=== PATIENT | female | born 1955 | race Asian ===

== ENCOUNTER → 2016-08-12 | Outpatient (CLI) | payer BC ==
[~2016-08-12] MED LIST: ALBU1AER9; CALCTAB5 PO; CHOL400T; MULT-884
== END | disposition home or self-care (01) ==
LOC: C.PAPS 16:10
PROVIDERS: ATTEND Obstetrics & Gynecology
DX: Z01.419 Encounter for gynecological examination (general) (routine) without abnormal findings (principal)

== ENCOUNTER → 2016-10-02 | Outpatient (CLI) | payer BC ==
--- NOTE | 2016-10-05 14:33 | MAMMOGRAPHY REPORT ---
BILATERAL DIGITAL SCREENING MAMMOGRAM TOMOSYNTHESIS WITH CAD: 10/02/2016 TECHNIQUE: Breast tomosynthesis in addition to standard 2D mammography was performed. Current study was also evaluated with a Computer Aided Detection (CAD) system. COMPARISON: Comparison is made to exams dated: 09/27/2015 mammogram, 09/06/2014 mammogram, 09/05/2013 ma mmogram, 08/08/2012 mammogram, 08/06/2011 mammogram, and 08/01/2010 mammogram - [facility]ter. BREAST COMPOSITION: There are scattered areas of fibroglandular density in both breasts. FINDINGS: No suspicious masses, calcifications, or areas of architectural distortion are noted in ei ther breast. There has been no significant interval change compared to prior exams. IMPRESSION: ACR BI-RADS CATEGORY 1: NEGATIVE There is no mammographic evidence of malignancy. A 1 year screening mammogram is recommended. The pa tient will receive written notification of the results. Approximately 10% of breast cancers are not detected with mammography. A negative mammographic report should not delay biopsy if a clinically suggestive mass is present. Cathy Randall M.D. /:10/02/2016 15:34:35 Senior Payroll Manager: Jaylin DOOLEY)([place]), [facility] letter sent: Normal 1/2 BI-RADS Code: ACR BI-RADS Category 1: Negative
== END | disposition home or self-care (01) ==
LOC: C.MAMM 14:48
PROVIDERS: ATTEND Obstetrics & Gynecology
DX: Z12.31 Encounter for screening mammogram for malignant neoplasm of breast (principal)

== ENCOUNTER → 2016-11-25 | Outpatient (CLI) | payer BC | END | disposition home or self-care (01) | LOC: C.LABSPEC 09:56 | PROVIDERS: ATTEND Obstetrics & Gynecology | DX: N93.9 Abnormal uterine and vaginal bleeding, unspecified (principal) ==

== ENCOUNTER → 2016-12-28 | Outpatient (CLI) | payer BC ==
--- NOTE | 2016-12-28 08:17 | DIAGNOSTIC IMAGING REPORT ---
ABDOMEN COMPLETE (US) CLINICAL HISTORY: 61 years-old Female presenting with ABDOMINAL PAIN. TECHNIQUE: Real-time grayscale and limited color Doppler ultrasound imaging of the abdomen was performed. COMPARISON: None. FINDINGS: Pancreas: Visualized portions of the pancreatic head and body normal. Liver: Normal echogenicity and echotexture. Main portal vein patent with normal directional flow. Biliary: No intrahepatic biliary ductal dilatation. Common bile duct measures up to 5 mm in diameter. Gallbladder: Normal in appearance without evidence of gallstones, gallbladder wall thickening, or pericholecystic fluid. Spleen: Normal in echogenicity and size, measuring 7.0 cm in length. Kidneys: Normal in size and echogenicity. Right kidney measures 9.7 cm, and left kidney measures 9.5 cm. No hydronephrosis. Vasculature: Visualized portions of the IVC and abdominal aorta normal. Ascites: None. IMPRESSION: Normal abdominal ultrasound. Electronically signed by: Raman Thornton M.D. 12/28/2016 8:16 AM Dictated Date/Time: 12/28/2016 8:13 AM
== END | disposition home or self-care (01) ==
LOC: C.ULTR 07:29
PROVIDERS: ATTEND Family Medicine
DX: R10.9 Unspecified abdominal pain (principal)

== ENCOUNTER → 2017-04-21 | Outpatient (CLI) | payer OTHER ==
--- NOTE | 2017-04-21 11:50 | DIAGNOSTIC IMAGING REPORT ---
PELVIC COMPLETE NON OB HISTORY: 61 years-old Female ABDOMINAL PAIN acute generalized abdominal pain. History of prior COMPARISON: Pelvic ultrasound 02/23/2013 TECHNIQUE: Multiple real-time sonographic images of the deep pelvic structures were obtained transabdominally and transvaginally assessing grayscale appearance, color and spectral flow FINDINGS: TRANSABDOMINAL: Retroflexed uterus measures 6.7 x 3.6 x 3.8 cm. Ovaries not visualized. TRANSVAGINAL: Retroflexed uterus measures 6.8 x 3.4 x 4.4 cm. Endometrium measures 0.3 cm, within normal limits in a postmenopausal patient. No myometrial mass lesions identified. Right ovary measures 2.4 x 0.6 x 1.5 cm and demonstrates arterial inflow. There is a small 7 mm cystic lesion of the right ovary is nonspecific. The left ovary measures 1.1 x 0.7 x 1.6 cm and is unremarkable with arterial inflow documented. No significant free pelvic fluid. IMPRESSION: 1. Unremarkable sonographic appearance of the uterus and endometrium. 2. 7 mm cyst of the right ovary. 3. Normal left ovary. The above report was generated using voice recognition software. It may contain grammatical, syntax or spelling errors. Electronically signed by: Alexys Hodgson M.D. 04/21/2017 11:49 AM Dictated Date/Time: 04/21/2017 11:45 AM
== END | disposition home or self-care (01) ==
LOC: C.ULTR 10:58
PROVIDERS: ATTEND Family Medicine
DX: R10.9 Unspecified abdominal pain (principal); N83.201 Unspecified ovarian cyst, right side